=== PATIENT | female | born 1980 | race Caucasian/White ===

== ENCOUNTER 2018-03-01 18:10 | Emergency (ER) | payer OTHER ==
[2018-03-01 18:56] VITALS: RESP 18
--- NOTE | 2018-03-01 20:19 | ED ---
ENT HPI - General Chief complaint: ENT Stated complaint: Sore Throat Time Seen by Provider: 03/01/18 19:55 Source: patient, RN notes reviewed Mode of arrival: ambulatory Limitations: no limitations - History of Present Illness Initial comments: This is a 37yo female with no PMH who presents today for CC of sore throat x3 days. Pt states that 3 days go she has had a sore throat and post nasal drip. Today when she looked in the mirror she noticed she had enlarged tonsills with white plaques on them. She was concerned for strep throat so she presented to the emergency department today. Pt admits to chills. Denies cough, difficulty breathing or swallowing, fever, headache, ear pain, visual changes, neck stiffness, fatigue or any other associated symptoms. Pt denies recent antibiotic use or drug allergies. Patient denies any recent shortness of breath , chest pain, back pain, abdominal pain, nausea or vomiting, numbness or tingling, dysuria or hematuria, constipation or diarrhea, headaches or visual changes, or any other complaints. Pt afebrile upon presentation and denies taking any medication for the sore throat. - Related Data Home Medications Medication Instructions Recorded Confirmed Norgestimate-Ethinyl Estradiol 1 tab PO DAILY 03/01/18 03/01/18 [Sprintec 28 Day Tablet] Phenyleph/Acetaminophn/Doxylam 1 cap PO Q6H PRN 03/01/18 03/01/18 [Vicks Dayquil-Nyquil Sinex Cap] Previous Rx's Medication Instructions Recorded predniSONE 20 mg PO DAILY 5 Days #5 tab 03/01/18 Allergies Allergy/AdvReac Type Severity Reaction Status Date / Time No Known Allergies Allergy Verified 03/01/18 19:42 Review of Systems ROS Statement: Those systems with pertinent positive or pertinent negative responses have been documented in the HPI. ROS Other: All systems not noted in ROS Statement are negative. Constitutional: Reports: chills. Denies: fever, weakness, night sweats ENT: Reports: as per HPI, throat pain. Denies: ear pain, dental pain Respiratory: Denies: cough, dyspnea, wheezes, hemoptysis, stridor Cardiovascular: Denies: chest pain, palpitations, orthopnea, edema Endocrine: Denies: fatigue Gastrointestinal: Denies: abdominal pain, nausea, vomiting, diarrhea, constipation, hematemesis, melena Genitourinary: Denies: urgency, dysuria, frequency, hematuria, discharge Musculoskeletal: Denies: back pain Skin: Denies: rash, lesions, change in color, change in hair/nails, pruritus Neurological: Denies: headache, weakness, numbness, paresthesias, confusion, abnormal gait, vertigo Past Medical History Past Medical History: No Reported History History of Any Multi-Drug Resistant Organisms: None Reported Past Surgical History: Section Past Psychological History: Anxiety Smoking Status: Never smoker Past Alcohol Use History: Occasional Past Drug Use History: Marijuana General Exam - General Exam Comments Initial Comments: General: The patient is awake and alert, in no distress, and does not appear acutely ill. Eye: Pupils are equal, round and reactive to light, extra-ocular movements are intact. No nystagmus. There is normal conjunctiva bilaterally. No signs of icterus. Ears, nose, mouth and throat: There are moist mucous membranes and no oral lesions. Erythematous oropharyngx and tonsils. tonsils appear enlarged with white exudates. + post nasal drip. nares patent. no uvula deviation or peritonsillar abscess visible. Neck: The neck is supple, there is no tenderness or JVD. No anterior or posterior cervical lymphadenopathy. Cardiovascular: There is a regular rate and rhythm. No murmur, rub or gallop is appreciated. Respiratory: Lungs are clear to auscultation, respirations are non-labored, breath sounds are equal. No wheezes, stridor, rales, or rhonchi. Gastrointestinal: Soft, non-distended, non-tender abdomen without masses or organomegaly noted, including splenomegaly. There is no rebound or guarding present. No CVA tenderness. Bowel sounds are unremarkable. Musculoskeletal: Normal ROM, no tenderness. Strength 5/5. Sensation intact. Pulses equal bilaterally 2+. Neurological: A&O x 3. CN II-XII intact, There are no obvious motor or sensory deficits. Coordination appears grossly intact. Speech is normal. Skin: Skin is warm and dry and no rashes or lesions are noted. Psychiatric: Cooperative, appropriate mood & affect, normal judgment. Limitations: no limitations Course Vital Signs 03/01/18 03/01/18 18:53 20:54 Temperature 98.4 F 98.3 F Pulse Rate 76 69 Respiratory 18 18 Rate Blood Pressure 170/100 183/90 O2 Sat by Pulse 100 100 Oximetry Medical Decision Making - Medical Decision Making 37yo with CC Of sore throat, and tonsilar exudates x3 days. Rapid strep obtained negative. No ulvula deviation or evidence of obvious peritonsilar abscess. pt denies difficulty breathing or swallowing . Pt afebrile . At this time I have low suspicion for Strep A infection given age, lack of fever and cough this is most likely viral pharynigits. Case discussed with Dr. Ambrocio who agreed. Pt given 20mg prednisone daily x4 days to help decrease inflammation and instructed to use OTC tylenol and ibuprofen for pain mgmt and to return for worsening or new symptoms. Pt is to f/u with PCP in 1-2 days. Pt agreed with plan and d/c in stable condition. - Lab Data Lab Results 03/01/18 Range/Units 20:00 Group A Strep Rapid Negative (Negative) Disposition Clinical Impression: Pharyngitis, Tonsillitis Disposition: HOME SELF-CARE Condition: Good Instructions: Pharyngitis (ED), Tonsillitis (ED) Additional Instructions: Please use medication as discussed. Please follow-up with family doctor in the next 2 days.. Please return to emergency room if the symptoms increase or worsen or for any other concerns as discussed. Prescriptions: predniSONE 20 mg PO DAILY 5 Days #5 tab Is patient prescribed a controlled substance at d/c from ED?: No Referrals: Ward Rayo MD [Primary Care Provider] - 1-2 days Time of Disposition: 20:44
[2018-03-01 20:54] VITALS: BP 183/90; PULSE 69; TEMP 98.3
== END 2018-03-01 21:00 | disposition home or self-care (01) ==
LOC: EC 18:10
DX: J03.90 Acute tonsillitis, unspecified (principal); Z79.3 Long term (current) use of hormonal contraceptives
CPT/HCPCS: 87081; 87430; 99283

== ENCOUNTER 2018-06-21 21:21 | Emergency (ER) | payer OTHER ==
[2018-06-21 21:52] VITALS: RESP 18
--- NOTE | 2018-06-21 23:02 | XR ---
EXAMINATION TYPE: XR cervical spine comp DATE OF EXAM: 06/21/2018 COMPARISON: NONE HISTORY: Pain TECHNIQUE: 5 views FINDINGS: There is fairly normal alignment and spacing of the vertebra. There is minor spurring at C5 -6. Posterior elements are intact. Atlantoaxial facet joint is normal. There are no cervical ribs. Ne ural foramina are widely patent. IMPRESSION: Negative cervical spine exam.
--- NOTE | 2018-06-21 23:11 | XR ---
EXAMINATION TYPE: XR lumbosacral spine min 4V DATE OF EXAM: 06/21/2018 COMPARISON: NONE HISTORY: Pain TECHNIQUE: 5 views FINDINGS: Vertebra have normal spacing and alignment. Posterior elements are intact. Sacroiliac joint s appear normal. There is no evidence of a fracture. IMPRESSION: Negative lumbar spine exam.
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
[2018-06-21 23:48] VITALS: BP 148/102; PULSE 70
[2018-06-21 23:49] VITALS: TEMP 98.4
[2018-06-21] MEDS ORDERED: CYCLOBENZAPRINE 10MG STARTER 3 TAB BTL PO STA (23:49)
== END 2018-06-21 23:55 | disposition home or self-care (01) ==
LOC: EC 21:21
DX: S16.1XXA Strain of muscle, fascia and tendon at neck level, initial encounter (principal); S39.012A Strain of muscle, fascia and tendon of lower back, initial encounter; Z79.3 Long term (current) use of hormonal contraceptives; V40.5XXA Car driver injured in collision with pedestrian or animal in traffic accident, initial encounter; Y92.89 Other specified places as the place of occurrence of the external cause
CPT/HCPCS: 72050; 72110; 99283

== ENCOUNTER → 2018-08-12 | Outpatient (CLI) | payer OTHER ==
[2018-08-12 09:56] VITALS: RESP 16; BMI 57.6
--- NOTE | 2018-08-12 10:34 | P.HPBAR ---
Bariatric H&P - History & Physicial H&P Date: 08/12/18 History & Physicial: Visit/CC: Initial Visit Patient initial contact: Initial weight: 136.078 kg Initial weight in pounds: 300.00 Height: 5 ft 0.5 in Initial BMI: 57.6er dad Last weight: Current weight: 136.078 kg Current weight in pounds: 300.00 Current BMI: 57.6 [place] body weight (based on NIH guidelines): 46.493 kg Excess body weight loss: 0.0% The patient is a 38 year-old F who presents for Bariatric Assessment. DATE OF SERVICE: 08/12/2018 REASON FOR CONSULTATION: Initial bariatric evaluation. HISTORY OF PRESENT ILLNESS: Pratibha Martins is a 38-year-old female who comes with lifelong morbid obesity. She reports new hypertension for over 1 year. She is looking into a bariatric procedure. She has recently been placed on an anti- depressant. Her dad has the sleeve. Her highest weight is 315 pounds. She lost weight due to depression last year and lost 30+ pounds. She tried Weight watchers. She has trouble sticking with a program. She tried Adipex and lost 40 to 50 pounds. She has gastroesophageal reflux disease. No stomach or esophageal cancer. She still has her gallbladder. Her cousin had her gallbladder removed. She has no troubles with her bowels. No reports of colitis. No reports of lupus. At height of 5 feet 0.5 inches, her ideal body weight is 127 pounds. She comes in 299 pounds. Her highest weight was 315 pounds. Her body mass index highest was 60.6. Today her BMI is 57.6. She is 172 pounds overweight. PAST MEDICAL HISTORY: 1. Morbid obesity due to excess calories 2. Body mass index of 57.6, initial 3. Osteoarthritis of the knees. 4. Anxiety disorder 5. Pre-diabetes 6. Gastroesophageal reflux disease. 7. Depressive disorder PAST SURGICAL HISTORY: 1. section HOME MEDICATIONS: ALLERGIES: Home Medications Medication Instructions Recorded Confirmed Type Norgestimate-Ethinyl Estradiol 1 tab PO DAILY 03/01/18 08/16/18 History [Sprintec 28 Day Tablet] Phenyleph/Acetaminophn/Doxylam 1 cap PO Q6H PRN 03/01/18 08/16/18 History [Vicks Dayquil-Nyquil Sinex Cap] Allergies Allergy/AdvReac Type Severity Reaction Status Date / Time No Known Allergies Allergy Verified 08/16/18 17:57 SOCIAL HISTORY: Smokes marijuana FAMILY HISTORY: No family history of ulcerative colitis disease or Crohn's disease. Family history of morbid obesity. No lupus in the family. No reports of stomach or esophageal cancer. REVIEW OF ORGAN SYSTEMS: CONSTITUTIONAL: At height of 5 feet 0.5 inches, her ideal body weight is 127 pounds. She comes in 299 pounds. Her highest weight was 315 pounds. Her body mass index highest was 60.6. Today her BMI is 57.6. She is 172 pounds overweight. HEENT: Denies any active troubles with vision or hearing. No troubles with swallowing. ENDOCRINE: Has diabetes. No hypothyroidism. CARDIOVASCULAR: No reports of palpitations or heart attacks or chest pain. RESPIRATORY: Has daytime somnolence. Has asthma. GI: Denies any bright red blood per rectum. No diarrhea. Has constipation. MUSCULOSKELETAL: Has lower back pain and joint pain. Has osteoarthritis of the knees. NEURO: No headaches. No seizure disorders. PSYCH: Has depression. No suicidal ideation. RHEUMATOLOGIC: No lupus. No rheumatoid arthritis. HEMATOLOGIC: Denies any abnormal bleeding or bruising. No personal history of DVTs. SKIN: No rash. No skin cancer. PHYSICAL EXAM: VITAL SIGNS: Height 5 foot 0.5 inches, weight 299 pounds. BMI 57.6 Vital Signs Temp 98.2 F 08/12/18 09:53 Pulse 82 08/12/18 09:53 Resp 16 08/12/18 09:53 BP 184/138 08/12/18 09:53 Pulse Ox GENERAL: Well-developed in no acute distress. HEENT: No scleral icterus. Extraocular movements grossly intact. Hears conversational speech. No nasal drainage. NECK: Supple without lymphadenopathy. CHEST: Nonlabored respirations with equal bilateral excursions. CARDIOVASCULAR: Regular rate and regular rhythm. Distal 2+ pulses. ABDOMEN: Obese, soft, nontender, nondistended. MUSCULOSKELETAL: No clubbing, cyanosis. Gross strength 5/5 distal lower extremities. NEURO: No focal or lateralizing signs. Cranial nerves 2 through 12 grossly within normal limits. PSYCH: Appropriate affect. Alert and oriented to person, place and time. SKIN: Good skin turgor. Well perfused. ASSESSMENT: 1. Morbid obesity due to excess calories 2. Body mass index of 57.6, initial 3. Osteoarthritis of the knees. 4. Anxiety disorder 5. Pre-diabetes 6. Gastroesophageal reflux disease. 7. Depressive disorder 8. Family history of morbid obesity PLAN: 1. Surgical options including a band, gastric bypass, sleeve gastrectomy were described in detail. Alternatives such as gastric balloon including duodenal switch were described. 2. The [place] bariatric surgical collaborative data and outcomes calculator were described with surgical options. 3. Recommend a bariatric metabolic panel to evaluate for micro- including macronutrient deficiencies. 4. For history of daytime somnolence, recommend evaluation and treatment for sleep apnea. 5. Dietary surveillance and counseling was reviewed, I have asked increased protein intake to at least 65 grams daily. 6. Will need cardiac risk assessment. 7. Recommend medical risk assessment. 8. Psych assessment per insurance guidelines. 9. Recommend upper endoscopy. 10. Recommend 12-lead EKG. 11. We went over natural ways to control her blood pressure 12. She is pre-diabetic and recommend evaluation with cupola operator. Thank you for this consultation. Laboratory Last Values WBC 8.4 k/uL (3.8-10.6) 08/12/18 11:14 RBC 5.18 m/uL (3.80-5.40) 08/12/18 11:14 Hgb 10.8 gm/dL (11.4-16.0) L 08/12/18 11:14 Hct 36.8 % (34.0-46.0) 08/12/18 11:14 MCV 71.0 fL (80.0-100.0) L 08/12/18 11:14 MCH 20.9 pg (25.0-35.0) L 08/12/18 11:14 MCHC 29.4 g/dL (31.0-37.0) L 08/12/18 11:14 RDW 13.6 % (11.5-15.5) 08/12/18 11:14 Plt Count 366 k/uL (150-450) 08/12/18 11:14 Hypochromasia Marked 08/12/18 11:14 Microcytosis Slight 08/12/18 11:14 Sodium 139 mmol/L (135-145) 08/12/18 11:14 Potassium 4.5 mmol/L (3.5-5.5) 08/12/18 11:14 Chloride 102 mmol/L (96-109) 08/12/18 11:14 Carbon Dioxide 28.2 mmol/L (21.6-31.8) 08/12/18 11:14 Anion Gap 8.80 mmol/L (4.00-12.00) 08/12/18 11:14 BUN 10.0 mg/dL (9.0-27.0) 08/12/18 11:14 Creatinine 0.6 mg/dL (0.6-1.5) 08/12/18 11:14 Est GFR (CKD-EPI)AfAm 135.9 (60.0-200.0) 08/12/18 11:14 Est GFR (CKD-EPI)NonAf 117.3 (60.0-200.0) 08/12/18 11:14 BUN/Creatinine Ratio 16.67 Ratio (12.00-20.00) 08/12/18 11:14 Glucose 113 mg/dL (70-110) H 08/12/18 11:[address] Glu mg/dL 131 08/12/18 11:14 Hemoglobin A1c 6.2 % (4.0-6.0) H 08/12/18 11:14 Calcium 9.0 mg/dL (8.7-10.3) 08/12/18 11:14 Iron 32 ug/dL (50-170) L 08/12/18 11:14 TIBC 483 ug/dL (228-460) H 08/12/18 11:14 Iron Saturation 6.63 (12.00-45.00) L 08/12/18 11:14 Ferritin 5.3 ng/mL (10.0-291.0) L 08/12/18 11:14 Total Bilirubin 0.4 mg/dL (0.2-1.2) 08/12/18 11:14 AST 19 U/L (13-35) 08/12/18 11:14 ALT 27 U/L (8-44) 08/12/18 11:14 Alkaline Phosphatase 105 U/L (41-126) 08/12/18 11:14 Total Protein 6.8 g/dL (6.2-8.2) 08/12/18 11:14 Albumin 4.30 g/dL (3.80-4.90) 08/12/18 11:14 Globulin 2.5 g/dL (1.6-3.3) 08/12/18 11:14 Albumin/Globulin Ratio 1.72 g/dL (1.20-2.10) 08/12/18 11:14 Triglycerides 97.0 mg/dL (0.0-149.0) 08/12/18 11:14 Cholesterol 127 mg/dL (0-200) 08/12/18 11:14 LDL Cholesterol, Calc 52.6 mg/dL (0.0-131.0) 08/12/18 11:14 VLDL Cholesterol, Calc 19.40 mg/dL (5.00-40.00) 08/12/18 11:14 HDL Cholesterol 55.0 mg/dL (40.0-60.0) 08/12/18 11:14 Cholesterol/HDL Ratio 2.31 08/12/18 11:14 Vitamin B1 55 ug/L (38-122) 08/12/18 11:14 Vitamin B12 322.0 pg/mL (200.0-944.0) 08/12/18 11:14 Vitamin D 25-Hydroxy 12.7 ng/mL (30.0-100.0) L 08/12/18 11:14 Folate 8.8 ng/mL 08/12/18 11:14 TSH 1.640 uIU/mL (0.350-5.500) 08/12/18 11:14 EKG EKG PERFORMED 08/12/18 11:14 Iron is low Hgb A1C is elevated Vitamin D is low Past Medical History Past Medical History: No Reported History History of Any Multi-Drug Resistant Organisms: None Reported Past Surgical History: Section Past Psychological History: Anxiety Smoking Status: Never smoker Past Alcohol Use History: Occasional Past Drug Use History: Marijuana Surgical - Exam Vital Signs Resp 16 08/12/18 09:53 Results - Labs 08/12/18 11:14 08/12/18 11:14 Bariatric Checklist Checklist: Plan: Checklist: EGD: 1. Hiatal hernia: 2. H. Pylori: HgbA1c: Vitamin D: Smoking: Never smoker Primary care physician referral: Psychiatry clearance: Cardiology clearance: Sleep study: Diet journal: VTE risk score: VTE risk level: Rehab needs at discharge:
[2018-08-12 11:30] VITALS: BP 184/138; PULSE 82; TEMP 98.2
[2018-08-12 11:54] LABS: HCT 36.8 % (34.0-46.0); HGB 10.8 gm/dL (11.4-16.0); Hypochromasia Marked; MCH 20.9 pg (25.0-35.0); MCHC 29.4 g/dL (31.0-37.0); Mean Platelet Volume 6.1; Microcytosis Slight; Platelet Count 366 k/uL (150-450); RBC 5.18 m/uL (3.80-5.40); RDW 13.6 % (11.5-15.5); WBC 8.4 k/uL (3.8-10.6)
[2018-08-12 16:33] LABS: Iron Saturation 6.63 (12.00-45.00)
[2018-08-12 16:39] LABS: Albumin 4.3 g/dL (3.80-4.90); Albumin/Globulin Ratio 1.72 (1.20-2.10); Anion Gap 8.8 mmol/L (4.00-12.00); Carbon Dioxide 28.2 mmol/L (21.6-31.8); Globulin 2.5 g/dL (1.6-3.3); LDL Cholesterol,Calculated 52.6 mg/dL (0.0-131.0); Potassium 4.5 mmol/L (3.5-5.5); Total Bilirubin 0.4 mg/dL (0.2-1.2); Total Protein 6.8 g/dL (6.2-8.2); VLDL Calculation 19.4 mg/dL (5.00-40.00)
[2018-08-12 16:41] LABS: Folate, Serum 8.8 ng/mL
[2018-08-12 16:42] LABS: Vitamin D 25 Hydroxy 12.7 ng/mL (30.0-100.0)
[2018-08-12 20:13] LABS: Hemoglobin A1C 6.2 % (4.0-6.0)
== END | disposition home or self-care (01) ==
LOC: BARWHC3 09:40
PROVIDERS: ATTEND Surgery Plastic and Reconstructive Surgery
DX: E88.81 Metabolic syndrome and other insulin resistance (principal); E66.01 Morbid (severe) obesity due to excess calories; F32.9 Major depressive disorder, single episode, unspecified; K21.9 Gastro-esophageal reflux disease without esophagitis; M17.0 Bilateral primary osteoarthritis of knee; F41.9 Anxiety disorder, unspecified; F12.929 Cannabis use, unspecified with intoxication, unspecified; E44.0 Moderate protein-calorie malnutrition; E55.9 Vitamin D deficiency, unspecified; I11.9 Hypertensive heart disease without heart failure; G47.30 Sleep apnea, unspecified; Z68.43 Body mass index [BMI] 50.0-59.9, adult; Z79.3 Long term (current) use of hormonal contraceptives; Z98.890 Other specified postprocedural states; Z83.49 Family history of other endocrine, nutritional and metabolic diseases; Z79.899 Other long term (current) drug therapy
CPT/HCPCS: 84425; 80061; 80053; 82607; 82728; 82746; 83540; 83550; 84443; 85027; 82306; 83036; 93005; 36415; G0463; 99201